=== PATIENT | male | born 1970 | race Hispanic/Latino ===

== ENCOUNTER 2016-11-16 23:28 | Emergency (ER) | payer OTHER ==
[2016-11-17 01:04] LABS: Basophils % (Auto) 0.9 % (0.0-1.8); Eosinophils % (Auto) 0.6 % (0.0-4.3); Hematocrit 45.9 % (35.5-45.6); Mean Corpuscular HGB Conc 33 % (32-34); Mean Corpuscular Hemoglobin 27 pg (28-32); Mean Corpuscular Volume 83 fl (84-94); Platelet Count 379 K/mm3 (140-440); Red Blood Count 5.51 M/mm3 (3.65-5.03); Red Cell Distribution Width 14.4 % (13.2-15.2); White Blood Count 13.3 K/mm3 (4.5-11.0)
[2016-11-17 01:21] LABS: Anion Gap 19 mmol/L; Blood Urea Nitrogen 13 mg/dL (9-20); Calcium 9.6 mg/dL (8.4-10.2); Carbon Dioxide 24 mmol/L (22-30); Chloride 96.1 mmol/L (98-107); Glucose 129 mg/dL (75-100); Potassium 3.9 mmol/L (3.6-5.0); Sodium 135 mmol/L (137-145)
[2016-11-17] MEDS ORDERED: NACL 0.9% 500 ML 500 ML IV ONE (11:46)
[2016-11-17] MEDS ORDERED: MORPHINE IV ONE (11:46)
--- NOTE | 2016-11-17 12:23 | XRay Report ---
Single view chest: History: Chest pain. Findings: Borderline cardiomegaly. Trachea is midline. No consolidation, pneumothorax or pleural effusion. Left diaphragm at the higher level compared to right. Impression: No acute cardiopulmonary findings.
[2016-11-17 12:26] LABS: Albumin 4.2 g/dL (3.9-5); Albumin/Globulin Ratio 1.3 %; Bilirubin,Direct 0.2 mg/dL (0-0.2); Bilirubin,Total 1.2 mg/dL (0.1-1.2); Total Protein 7.5 g/dL (6.3-8.2)
--- NOTE | 2016-11-17 12:37 | Emergency Department Report ---
HPI - General Chief Complaint: Chest Pain Time Seen by Provider: 11/17/16 11:27 - HPI HPI: This is a 46-year-old male who presents the emergency department with complaints of some midsternal chest pain radiating to the left shoulder, as well as some right quadrant abdominal pain, both of which have been going on since last , 3 days ago. Patient does have a history of gallstones and says that sometimes it has caused him to have sensation of chest discomfort but usually does not radiate towards the left shoulder. He denies any nausea, vomiting, fever, back pain, diaphoresis. He took a single Central for his symptoms on the first day and had some temporary relief. His primary care doctor is a Dr. Cristina. No recent travel or sick contacts at home. He also has a past medical history of Mccarthy's disease. He denies any history of VT, CVA, PE/DVT. ED Past Medical Hx - Past Medical History Additional medical history: Gallstones, Barretts Dz, - Surgical History Additional Surgical History: Lower esophageal surgery for Barretts disease, - Social History Smoking Status: Never Smoker Substance Use Type: None - Medications Home Medications: Home Medications Medication Instructions Recorded Confirmed Last Taken Type HYDROcodone/APAP 5-325 [Central 1 each PO Q6HR PRN #12 tablet 11/17/16 Unknown Rx 5/325] ED Review of Systems ROS: Stated complaint: CHEST PAIN, LEFT SIDE PAIN Other details as noted in HPI Comment: All other systems reviewed and negative Constitutional: denies: chills, fever Eyes: denies: eye pain, eye discharge, vision change ENT: denies: ear pain, throat pain Respiratory: denies: cough, wheezing Cardiovascular: chest pain. denies: palpitations Gastrointestinal: abdominal pain. denies: nausea, vomiting Genitourinary: denies: urgency, dysuria Musculoskeletal: denies: back pain, joint swelling, arthralgia Skin: denies: rash, lesions Neurological: denies: headache, weakness, paresthesias Physical Exam - Physical Exam Vital Signs: Vital Signs 11/17/16 11/17/16 11/17/16 00:27 07:32 11:28 Temperature 99.2 F 99.1 F Pulse Rate 114 H 97 H 90 Respiratory 22 16 10 L Rate Blood Pressure 143/98 151/97 Blood Pressure 153/98 [Left] Blood Pressure [Right] O2 Sat by Pulse 100 100 96 Oximetry 11/17/16 11/17/16 11/17/16 11:30 11:32 11:34 Temperature Pulse Rate 85 84 90 Respiratory 10 L 10 L 20 Rate Blood Pressure 142/100 142/100 Blood Pressure [Left] Blood Pressure 142/100 [Right] O2 Sat by Pulse 97 96 97 Oximetry 11/17/16 12:06 Temperature Pulse Rate Respiratory 20 Rate Blood Pressure Blood Pressure [Left] Blood Pressure [Right] O2 Sat by Pulse Oximetry Physical Exam: GENERAL: The patient is well-developed well-nourished. HEENT: Normocephalic. Atraumatic. Extraocular motions are intact. Patient has moist mucous membranes. Pupils equal reactive to light bilaterally. NECK: Supple. Trachea is midline. CHEST/LUNGS: Clear to auscultation. There is no respiratory distress noted. HEART/CARDIOVASCULAR: Regular. There is no tachycardia. There is no gallop rub or murmur. ABDOMEN: Abdomen is soft. There is some right upper quadrant tenderness to palpation of the abdomen. No guarding or rebound tenderness. Patient has normal bowel sounds. There is no abdominal distention. SKIN: There is no rash. There is no edema. There is no diaphoresis. NEURO: The patient is awake, alert, and oriented. The patient is cooperative. The patient has no focal neurologic deficits. The patient has normal speech. MUSCULOSKELETAL: There is no tenderness or deformity. There is no limitation range of motion. There is no evidence of acute injury. ED Course Vital Signs 11/17/16 11/17/16 11/17/16 00:27 07:32 11:28 Temperature 99.2 F 99.1 F Pulse Rate 114 H 97 H 90 Respiratory 22 16 10 L Rate Blood Pressure 143/98 151/97 Blood Pressure 153/98 [Left] Blood Pressure [Right] O2 Sat by Pulse 100 100 96 Oximetry 11/17/16 11/17/16 11/17/16 11:30 11:32 11:34 Temperature Pulse Rate 85 84 90 Respiratory 10 L 10 L 20 Rate Blood Pressure 142/100 142/100 Blood Pressure [Left] Blood Pressure 142/100 [Right] O2 Sat by Pulse 97 96 97 Oximetry 11/17/16 12:06 Temperature Pulse Rate Respiratory 20 Rate Blood Pressure Blood Pressure [Left] Blood Pressure [Right] O2 Sat by Pulse Oximetry ED Medical Decision Making - Lab Data Result diagrams: 11/17/16 00:51 11/17/16 00:51 - EKG Data -: EKG Interpreted by Me EKG shows normal: sinus rhythm, axis, intervals, QRS complexes, ST-T waves Rate: tachycardia (107 bpm) - EKG Data When compared to previous EKG there are: previous EKG unavailable Interpretation: normal EKG (with sinus tachy at 107 bpm) - Radiology Data Radiology results: report reviewed, image reviewed interpreted by me: Chest x-ray did not show any acute process. Heart is normal shape and size. No effusions. No pneumothorax. No signs of pneumonia seen. Right upper quadrant ultrasound shows a fatty liver and multiple calculi in the gallbladder. No cholecystitis. - Medical Decision Making 46-year-old male presents to the emergency department with a 3-4 day history of some right upper quadrant abdominal pain and midsternal discomfort. Patient was evaluated today with physical exam, labs, imaging and EKG. Physical exam the patient has some reproducible right upper quadrant abdominal discomfort to palpation. He had some mild tachycardia through triage but that has since resolved. Patient EKG is not show any signs of ST elevation VT, ischemia or dysrhythmia. Patient's labs include negative troponins 3 and a negative d- dimer. His belly labs are normal including lipase, LFTs and bilirubin. Chest x -ray did not show any acute process. His right upper quadrant ultrasound shows cholelithiasis without cholecystitis and some fatty liver. Patient was given a dose of pain medication and upon reevaluation is feeling much better. His vital signs are stable throughout his ED course. The patient has a NATE score of 1 if his discomfort is to be considered angina, and a 0 if not. The patient will be given referrals for both a general surgeon to discuss his biliary colic , as well as a breakfast manager as he may need a outpatient stress test. The patient will return to the ER with any worsening of symptoms or any acute distress. - Differential Diagnosis cholecystitis, cholelithiasis, cholecystitis, VT, PE, GERD Critical Care Time: No Critical care attestation.: If time is entered above; I have spent that time in minutes in the direct care of this critically ill patient, excluding procedure time. ED Disposition Clinical Impression: Biliary colic Cholelithiasis Qualifiers: Cholelithiasis location: gallbladder Cholecystitis presence: without cholecystitis Biliary obstruction: without biliary obstruction Qualified Code(s) : K80.20 - Calculus of gallbladder without cholecystitis without obstruction Chest pain Qualifiers: Chest pain type: unspecified Qualified Code(s): R07.9 - Chest pain, unspecified Disposition: DISCHARGED TO HOME OR SELFCARE Is pt being admited?: No Condition: Stable Instructions: Chest Pain (ED), Biliary Colic (ED) Additional Instructions: Please follow-up with your primary care doctor in the next few days. I have given your referral for a local breakfast manager, Dr. Fong, so you can follow-up regarding your chest pain and possibly have an outpatient stress test. I referral for a local general surgeon, Dr. Reyez, to follow up regarding your recurrent gallstones. Try to stay away from foods that are greasy and/or fatty so that it does not worsen your gallbladder pain. Return to the emergency department with any worsening of your symptoms or any acute distress. You've been prescribed a medication that is sedating. Therefore this medication cannot be mixed with alcohol, or taken prior to driving, working, or being responsible for children. Prescriptions: HYDROcodone/APAP 5-325 [Central 5/325] 1 each PO Q6HR PRN #12 tablet PRN Reason: Pain Referrals: PRIMARY CARE, [Primary Care Provider] - 3-5 Days CORNELIO REYEZ MD [Staff Physician] - 3-5 Days PETROS FONG MD [Staff Physician] - 3-5 Days Time of Disposition: 13:26
--- NOTE | 2016-11-17 13:11 | Ultrasound Report ---
Sonogram right upper quadrant: History: Right upper quadrant abdominal pain. Findings: Normal aorta and inferior vena cava. Uniform increase in echogenicity liver suggestive of fatty liver. No intrahepatic or extrahepatic duct dilatation. Common bile duct diameter 3.3 mm. Gallbladder wall thickness 2.1 mm. Multiple calculi are identified within the gallbladder. Largest measuring 1.5 cm. Right kidney 11.3 x 5.2 x 4.5 cm. Cortical thickness is 1.1 cm. No mass. No hydronephrosis. Pancreas obscured by bowel gas. Impression: Fatty liver. Multiple calculi in the gallbladder.
[2016-11-17 14:11] VITALS: BP 132/90
== END 2016-11-17 14:14 | disposition home or self-care (01) ==
LOC: ED 23:28
DX: K80.50 Calculus of bile duct without cholangitis or cholecystitis without obstruction (principal); K80.20 Calculus of gallbladder without cholecystitis without obstruction; R07.9 Chest pain, unspecified
CPT/HCPCS: 36415; 71010; 76705; 80048; 80074; 83690; 84484; 85025; 85379; 93005; 93010; 96361; 96374; 99285; J2270; J7040